=== PATIENT | male | born 1995 | race American Indian/Alaskan Native ===

== ENCOUNTER 2019-03-21 04:46 | Emergency (ER) | payer SELFPAY ==
--- NOTE | 2019-03-21 05:38 | XRay Report ---
Left foot 2 views INDICATION: Left foot pain after fall IMPRESSION: No fracture or subluxation of the left foot is identified. Signer Name: Rodger Mix MD Signed: 03/21/2019 5:34 AM Workstation Name: [id number]
--- NOTE | 2019-03-21 05:39 | XRay Report ---
Left ankle 2 views INDICATION: Left ankle pain IMPRESSION: No fracture or subluxation of the left ankle. Signer Name: Rodger Mix MD Signed: 03/21/2019 5:34 AM Workstation Name: [id number]
[2019-03-21] MEDS ORDERED: IBUPROFEN 800 MG TAB PO ONE (08:07)
--- NOTE | 2019-03-21 08:13 | Emergency Department Report ---
ED Lower Extremity HPI - General Chief Complaint: Fall Stated Complaint: FALL(LEFT FOOT PAIN) Time Seen by Provider: 03/21/19 07:40 Source: patient Mode of arrival: Ambulatory Limitations: No Limitations - History of Present Illness Initial Comments: This is a 23-year-old male who reports that she injured his left foot and ankle after falling and thinks given. He said he cannot put any weight on it. He said he fell about 13 step and twisted his foot. Denies any head injury. Pain is 8 out of 10 H he is appropriate. Pain is worse with movement but her rest. No medication taken. MD Complaint: foot injury Onset/Timin -: days(s) Injury: Foot: Left Type of Injury: inversion Severity: severe Severity scale (0 -10): 8 Improves With: immobilization Worsens With: weight bearing, movement Context: fall Associated Symptoms: swelling, unable to bear weight. denies: snap/pop sensation, numbness, tingling Treatments Prior to Arrival: other (immobilization) - Related Data Previous Rx's Medication Instructions Recorded Last Taken Type Ibuprofen [Motrin] 800 mg PO Q8HR PRN #12 tablet 03/21/19 Unknown Rx Allergies Allergy/AdvReac Type Severity Reaction Status Date / Time No Known Allergies Allergy Unverified 03/21/19 05:03 ED Review of Systems ROS: Stated complaint: FALL(LEFT FOOT PAIN) Other details as noted in HPI Constitutional: denies: chills, fever Respiratory: denies: cough, shortness of breath, wheezing Cardiovascular: denies: chest pain, palpitations, edema, syncope Musculoskeletal: joint swelling, arthralgia. denies: back pain, myalgia Skin: denies: rash Neurological: abnormal gait. denies: headache, numbness, paresthesias ED Past Medical Hx - Past Medical History Previous Medical History?: Yes Hx of Cancer: Yes (Stomach Cancer at ) - Surgical History Past Surgical History?: Yes Additional Surgical History: Stomach surgery for cancer - Family History Family history: hypertension - Social History Smoking Status: Never Smoker Substance Use Type: None - Medications Home Medications: Home Medications Medication Instructions Recorded Confirmed Last Taken Type Ibuprofen [Motrin] 800 mg PO Q8HR PRN #12 tablet 03/21/19 Unknown Rx ED Physical Exam - General Limitations: No Limitations General appearance: alert, in no apparent distress - Head Head exam: Present: atraumatic, normocephalic, normal inspection - Eye Eye exam: Present: normal appearance, PERRL, EOMI Pupils: Present: normal accommodation - ENT ENT exam: Present: normal exam, normal orophraynx, mucous membranes moist - Neck Neck exam: Present: normal inspection, full ROM. Absent: tenderness - Respiratory Respiratory exam: Present: normal lung sounds bilaterally. Absent: respiratory distress, chest wall tenderness - Cardiovascular Cardiovascular Exam: Present: regular rate, normal rhythm, normal heart sounds - GI/Abdominal GI/Abdominal exam: Present: soft, normal bowel sounds. Absent: distended, tenderness - Extremities Exam Extremities exam: Present: normal inspection, full ROM, normal capillary refill, other (think, cyanosis or edema. +2 pedal pulses). Absent: tenderness, pedal edema, joint swelling - Expanded Lower Extremity Exam Left Hip exam: Present: normal inspection, full ROM. Absent: tenderness, swelling Upper Leg exam: Present: normal inspection, full ROM. Absent: tenderness, swelling Knee exam: Present: normal inspection, full ROM. Absent: tenderness, swelling Lower Leg exam: Present: normal inspection, full ROM. Absent: tenderness, swelling Ankle exam: Present: normal inspection, full ROM. Absent: tenderness, swelling Foot/Toe exam: Present: full ROM (pain or range of motion), tenderness (left proximal foot), swelling (minimal swelling left proximal foot). Absent: normal inspection, abrasion, ecchymosis, deformity, crepidus, dislocation, erythema, amputation, puncture wound, foreign body, calcaneal tenderness, tenderness at base of 5th metatarsal, nail avulsion, subungual hematoma Neuro vascular tendon exam: Present: no vascular compromise, significant pain with passive ROM of distal joint Gait: Positive: antalgic - Back Exam Back exam: Present: normal inspection, full ROM, other (ambulates with limp due to left foot injury). Absent: tenderness - Neurological Exam Neurological exam: Present: alert, oriented X3, abnormal gait (left foot injury), reflexes normal - Psychiatric Psychiatric exam: Present: normal affect, normal mood - Skin Skin exam: Present: warm, dry, intact, normal color. Absent: rash ED Course Vital Signs 03/21/19 04:51 Temperature 98.3 F Pulse Rate 83 Respiratory 18 Rate Blood Pressure 128/94 O2 Sat by Pulse 98 Oximetry - Reevaluation(s) Reevaluation #1: 03/21/19 08:41 Patient given Motrin 800 mg by mouth emergency room for pain and discharged home in stable condition. Please see procedure note for details and splinted - Orthopedic Splinting/Casting Injury #1 Side: left Lower Extremity Injury Location: foot Lower Extremity Immobilizer: Artie wrap Other Orthopedic Equipment: crutches Additional Comments: She will good color, movement, sensation and temperature to feed. ED Lower Extremity MDM - Radiology Data Radiology results: report reviewed Patient had left ankle and left foot x-ray that was dictated by radiologist's report reviewed by myself. Please see details below Findings [address] [address] XRay Report Signed Patient: MARQUIS JOSE THRASHER MR#: [id number] : 1995 Acct:[id number] Age/Sex: 23 / M ADM Date: 03/21/19 Loc: ED Attending Dr: Ordering Physician: MARIANA SAUER Date of Service: 03/21/19 Procedure(s): XR ankle 2V LT Accession Number(s): [id number] cc: MARIANA SAUER Fluoro Time In Minutes: Left ankle 2 views INDICATION: Left ankle pain IMPRESSION: No fracture or subluxation of the left ankle. Signer Name: Rodger Mix MD Signed: 03/21/2019 5:34 AM Workstation Name: [id number] Transcribed By: BC Dictated By: Rodger Mix MD Electronically Authenticated By: Rodger Mix MD Signed Date/Time: 03/21/19 [address] [address] XRay Report Signed Patient: MARQUIS JOSE THRASHER MR#: [id number] : 1995 Acct:[id number] Age/Sex: 23 / M ADM Date: 03/21/19 Loc: ED Attending Dr: Ordering Physician: MARIANA SAUER Date of Service: 03/21/19 Procedure(s): XR foot 2V LT Accession Number(s): [id number] cc: MARIANA SAUER Fluoro Time In Minutes: Left foot 2 views INDICATION: Left foot pain after fall IMPRESSION: No fracture or subluxation of the left foot is identified. Signer Name: Rodger Mix MD Signed: 03/21/2019 5:34 AM Workstation Name: [id number] Transcribed By: Dictated By: Rodger iMx MD Electronically Authenticated By: Rodger Mix MD Signed Date/Time: 03/21/19533 DD/ 3 TD/TT: DD/ 3 TD/TT: - Medical Decision Making 23-year-old male here after left foot injury. Lt foot mild swelling to proximal left foot. X-ray shows no acute findings. This is dictated by radiologist and report reviewed by myself. Patient with sprain and please refer to procedure note for details. He was given Motrin for pain. I discussed diagnosis and treatment plan the patient and need to follow-up and he was understanding. Discharged home in stable condition with prescription for Motrin - Differential Diagnosis FX vs, dislocation, sprain strain msk pain Critical care attestation.: If time is entered above; I have spent that time in minutes in the direct care of this critically ill patient, excluding procedure time. ED Disposition Clinical Impression: Sprain of left foot Qualifiers: Encounter type: initial encounter Qualified Code(s): S93.602A - Unspecified sprain of left foot, initial encounter Disposition: TO HOME OR SELFCARE Is pt being admited?: No Does the pt Need Aspirin: No Condition: Stable Instructions: Foot Sprain (ED), RICE Therapy (ED), Crutch Instructions (ED) Additional Instructions: Please follow up with orthopedic doctor in a primary care doctor and 2-3 days regarding foot sprain. Take medication as prescribed but please take Motrin with food as this medication can cause irritation to somewhat lightheaded Patient worsens, return to emergency room See instruction on crutches comfort sprain and Rice therapy Referrals: PRIMARY CARE, [Primary Care Provider] - 2-3 Days Forms: Work/School Release Form(ED)
[2019-03-21 09:12] VITALS: BP 121/80
== END 2019-03-21 09:08 | disposition home or self-care (01) ==
LOC: ED 04:46
DX: S93.602A Unspecified sprain of left foot, initial encounter (principal); Z85.028 Personal history of other malignant neoplasm of stomach; Z79.899 Other long term (current) drug therapy; W10.8XXA Fall (on) (from) other stairs and steps, initial encounter; Y93.89 Activity, other specified; Y92.89 Other specified places as the place of occurrence of the external cause; Y99.8 Other external cause status

== ENCOUNTER 2020-03-01 04:20 | Emergency (ER) | payer OTHER ==
[2020-03-01 04:46] VITALS: BP 149/79
--- NOTE | 2020-03-01 05:23 | XRay Report ---
RIGHT RIBS 2 VIEWS INDICATION / CLINICAL INFORMATION: right rib pain. COMPARISON: None available. FINDINGS: The right ribs are intact. No visible rib fracture or other rib abnormality. The lungs are grossly clear. Heart size is normal. IMPRESSION: No right rib abnormality. Signer Name: Demi Agarwal MD Signed: 03/01/2020 5:18 AM Workstation Name: [id number]
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
== END 2020-03-01 08:51 | disposition home or self-care (01) ==
LOC: ED 04:20
DX: M79.18 Myalgia, other site (principal); F12.90 Cannabis use, unspecified, uncomplicated; Z79.899 Other long term (current) drug therapy; Z98.890 Other specified postprocedural states; V49.49XA Driver injured in collision with other motor vehicles in traffic accident, initial encounter; Y92.410 Unspecified street and highway as the place of occurrence of the external cause; Y93.89 Activity, other specified; Y99.8 Other external cause status
CPT/HCPCS: 99283